=== PATIENT | female | born 1995 | race Caucasian/White ===

== ENCOUNTER 2016-11-03 04:29 | Inpatient (IN) | payer OTHER ==
[2016-11-03] MEDS ORDERED: PENICILLIN G POTASSIUM 5,000,000 UNIT in SODIUM CHLORIDE 0.9% MINIBAG 100 ML IV ONE (06:23)
[2016-11-03] MEDS ORDERED: LACTATED RINGERS 1,000 ML IV ONE (06:28)
[2016-11-03] MEDS ORDERED: TERBUTALINE 1 MG/ML VIAL SUBQ ONE ×2 (07:00→07:06)
[2016-11-03] MEDS ORDERED: NIFEdipine 10 MG CAPSULE PO PRN (07:00)
[2016-11-03] MEDS ORDERED: NIFEdipine 10 MG CAPSULE PO ONE (07:18)
== END 2016-11-03 08:05 | disposition short-term general hospital (02) | DRG 781 ==
DX: O42.013 Preterm premature rupture of membranes, onset of labor within 24 hours of rupture, third trimester (principal); O99.89 Other specified diseases and conditions complicating pregnancy, childbirth and the puerperium; Z3A.35 35 weeks gestation of pregnancy; O32.1XX0 Maternal care for breech presentation, not applicable or unspecified; R82.71 Bacteriuria

== ENCOUNTER 2018-02-15 20:27 | Emergency (ER) | payer OTHER ==
[2018-02-15] MEDS ORDERED: ACETAMINOPHEN 500 MG TABLET PO STA (20:57)
--- NOTE | 2018-02-15 21:13 | ED Physician Documentation ---
PD HPI HEADACHE - Stated complaint Stated Complaint: HEAD PX/14WKS PREG/NAUSEA - Chief complaint Chief Complaint: General - History obtained from History obtained from: Patient - History of Present Illness Timing - onset: Yesterday Timing - onset during: Rest Timing - details: Intermittant, Waxing and waning Location: Front Quality: Throbbing, Aching Associated symptoms: Nausea. No: Fever, Stiff neck, Vomiting, Weakness, Numbness, Syncope, Seizure Improved by: Dark room Worsened by: Light, Noise Recently seen: Not recently seen - Additional information Additional information: patient is a 23 year old female, approximately 14 weeks by dates who is presenting to the emergency department for headache. Patient states that she had sinus congestion over the last couple of days with headaches. patient states that she took a child's tylenol yesterday but the headache didn't totally go away. patient states that she was out shopping this evening when the headache came back. patient called the nurses line who told her to come get checked out. Upon initial evaluation in the emergency department patient was feeling better and was in no acute distress. Patient had not taken anything for her headache recently. Review of Systems Ten Systems: 10 systems reviewed and negative Constitutional: denies: Fever, Chills Eyes: reports: Photophobia Neurologic: reports: Headache. 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 - Present Medications Home Medications: Ambulatory Orders Medication Instructions Recorded Confirmed Prenat Vit Comb.10/Iron/FA/Dha 1 each PO DAILY 07/05/15 07/10/15 [Vitafol-Ob+Dha Combo Pack] - Allergies Allergies/Adverse Reactions: Allergies Allergy/AdvReac Type Severity Reaction Status Date / Time No Known Drug Allergies Allergy Verified 02/15/18 20:42 - Social History Does the pt smoke?: No Smoking Status: Never smoker Does the pt drink ETOH?: No Does the pt have substance abuse?: No - Immunizations Immunizations are current?: Yes - POLST Patient has POLST: No PD ED PE NORMAL - Vitals Vital signs reviewed: Yes - General General: Alert and oriented X 3 - HEENT HEENT: Atraumatic, PERRL, Moist mucous membranes - Neck Neck: Supple, no meningeal sign - Cardiac Cardiac: RRR - Respiratory Respiratory: No respiratory distress - Derm Derm: Normal color, Warm and dry, No rash - Extremities Extremities: No deformity - Neuro Neuro: Alert and oriented X 3, 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 Patient was well appearing and no acute distress. Patient was treated with tylenol for her headache. Patient had no neurological dysfunction or signs of systemic disease. Patient required no further work up at this time and was stable for discharge with outpatient follow up. - Sepsis Event Vital Signs: Vital Signs - 24 hr 02/15/18 20:40 Temperature 37.0 C Heart Rate 90 Respiratory 17 Rate Blood Pressure 123/87 H O2 Saturation 100 Oxygen O2 Source Room air Departure - Departure Disposition: 01 Home, Self Care Clinical Impression: Allergic rhinitis Condition: Good Instructions: Headache Pain Follow-Up: primary,care provider [Other] - As Needed Comments: Headaches have multiple causes. it is important that you stay well hydrated and get plenty of rest. Based on your weight you should be taking 1000mg of tylenol at a time. You can also take benadryl 25-50mg as needed for allergy symptoms. You should follow up with your doctor if your symptoms persist. you may return to the emergency department at any time for new, worsening or uncontrollable symptoms.
[2018-02-15 21:32] VITALS: BP 125/75
== END 2018-02-15 21:31 | disposition home or self-care (01) ==
LOC: ED 20:27
DX: O26.891 Other specified pregnancy related conditions, first trimester (principal); J30.9 Allergic rhinitis, unspecified; Z3A.14 14 weeks gestation of pregnancy
CPT/HCPCS: 99283; A9270

== ENCOUNTER 2018-02-17 16:08 | Emergency (ER) | payer OTHER ==
[2018-02-17] MEDS ORDERED: METOCLOPRAMIDE 10 MG/2 ML VIAL IVP STA (18:19)
[2018-02-17] MEDS ORDERED: SODIUM CHLORIDE 0.9% 1,000 ML IV ONE (18:19)
[2018-02-17] MEDS ORDERED: diphenhydrAMINE INJ 50 MG/ML VIAL IVP STA (18:19)
--- NOTE | 2018-02-17 19:56 | ED Physician Documentation ---
PD HPI HEADACHE - Stated complaint Stated Complaint: HEADACHE/15 WEEKS - Chief complaint Chief Complaint: General - History obtained from History obtained from: Patient - History of Present Illness Timing - onset: How many weeks ago (1) Timing - onset during: Rest Location: Front Quality: Aching Associated symptoms: Nausea, Eye pain. No: Fever, Vomiting, Weakness, Numbness Improved by: Dark room Similar symptoms before: Work up / diagnostics Recently seen: Emergency Dept - Additional information Additional information: Patient is a 23 year old female, 15 weeks by dates who is presenting to the emergency department for headaches. patient was recently seen and at that time was told to take tylenol. patient states that the tylenol had not been helping so she came back for re-evaluation. Review of Systems Constitutional: denies: Fever, Chills, Myalgias Eyes: reports: Photophobia GI: reports: Nausea. denies: Vomiting : denies: Dysuria, Frequency Neurologic: reports: Headache. denies: Confused, Altered mental status, Head injury, LOC Immunocompromised: denies: Immunocompromised PD PAST MEDICAL HISTORY - Past Medical History Cardiovascular: None Respiratory: None Neuro: None Endocrine/Autoimmune: None GI: None E TAILER: None : None HEENT: None Psych: None Musculoskeletal: None Derm: None - Past Surgical History Past Surgical History: Yes /E TAILER: section - Present Medications Home Medications: Ambulatory Orders Medication Instructions Recorded Confirmed Prenat Vit Comb.10/Iron/FA/Dha 1 each PO DAILY 07/05/15 07/10/15 [Vitafol-Ob+Dha Combo Pack] - Allergies Allergies/Adverse Reactions: Allergies Allergy/AdvReac Type Severity Reaction Status Date / Time No Known Drug Allergies Allergy Verified 02/15/18 20:42 - Social History Does the pt smoke?: No Smoking Status: Never smoker Does the pt drink ETOH?: No Does the pt have substance abuse?: No - Immunizations Immunizations are current?: Yes - POLST Patient has POLST: No PD ED PE NORMAL - Vitals Vital signs reviewed: Yes - General General: Alert and oriented X 3, No acute distress - HEENT HEENT: Atraumatic - Neck Neck: Supple, no meningeal sign - Cardiac Cardiac: RRR - Respiratory Respiratory: No respiratory distress - Derm Derm: Normal color - Extremities Extremities: No deformity - Neuro Neuro: Alert and oriented X 3, 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. IV access was gained. Patient was treated with a fluid bolus, reglan and bendaryl. Upon re-evaluation patient's headache as resolved. While more serious etiologies were considered they were unlikely at this time. patient required no further work up at this time and was stable for discharge with outpatient follow up. - Sepsis Event Vital Signs: Vital Signs - 24 hr 02/17/18 02/17/18 02/17/18 16:18 19:40 20:22 Temperature 36.2 C L Heart Rate 71 69 77 Respiratory 20 14 16 Rate Blood Pressure 113/70 109/74 118/76 O2 Saturation 100 100 100 Oxygen O2 Source Room air Departure - Departure Disposition: 01 Home, Self Care Clinical Impression: Headache Condition: Good Instructions: ED Cephalgia Unspecified Follow-Up: Hussein Starkey MD [Primary Care Provider] - Tomorrow Comments: You should continue to try to stay well hydrated. you can continue with tylenol and benadryl as needed for headache. you should follow up with your doctor if your symptoms persist. you may return to the emergency department at any time for new, worsening or uncontrollable symptoms. Discharge Date/Time: 02/17/18 20:24
[2018-02-17 20:23] VITALS: BP 118/76
== END 2018-02-17 20:24 | disposition home or self-care (01) ==
LOC: ED 16:08
DX: O26.892 Other specified pregnancy related conditions, second trimester (principal); Z3A.15 15 weeks gestation of pregnancy
CPT/HCPCS: 96361; 96374; 99283; J1200; J2765